=== PATIENT | female | born 1965 | race Caucasian/White ===

== ENCOUNTER 2018-03-26 16:06 | Emergency (ER) | payer OTHER ==
--- NOTE | 2018-03-26 16:32 | EDPHY ---
H & P Stated Complaint: L facial numbness Time Seen by Provider: 03/26/18 16:27 HPI/ROS: CHIEF COMPLAINT: Left-sided facial numbness HISTORY OF PRESENT ILLNESS: 53-year-old previously healthy female presents with left facial numbness. Onset of left cheek numbness at 1500 today. Associated with dry mouth and numbness of the upper lip. No extremity weakness or numbness. No other associated symptoms. REVIEW OF SYSTEMS: complete 10 point ROS negative except at noted in the HPI - Personal History LMP (Females 10-55): Hysterectomy Current Tetanus/Diphtheria Vaccine: Yes Current Tetanus Diphtheria and Acellular Pertussis (TDAP): Yes - Medical/Surgical History Hx Asthma: No Hx Chronic Respiratory Disease: No Hx Diabetes: No Hx Cardiac Disease: No Hx Renal Disease: No Hx Cirrhosis: No Hx Alcoholism: No Hx HIV/AIDS: No Hx Splenectomy or Spleen Trauma: No Other PMH: c-sevtion, hysterectomy - Social History Smoking Status: Never smoked - Physical Exam Exam: General Appearance: Alert, pleasant Eyes: Pupils equal and round, no conjunctival pallor or injection ENT, Mouth: Mucous membranes moist Neck: Normal inspection Respiratory: Lungs are clear to auscultation Cardiovascular: Regular rate and rhythm Gastrointestinal: Abdomen is soft and nontender Neurological: Alert, oriented x3, Decreased sensation to light touch in the V2 distribution of the left face, normal sensation of the forehead and chin, motor 5/5, normal gait Skin: Warm and dry, no rash Extremities: Normal inspection Psychiatric: Mood and affect normal Constitutional: Initial Vital Signs Temperature (C) 36.7 C 03/26/18 16:16 Heart Rate 100 03/26/18 16:16 Respiratory Rate 16 03/26/18 16:16 Blood Pressure 157/89 H 03/26/18 16:16 O2 Sat (%) 96 03/26/18 16:16 O2 Delivery Mode Room Air Allergies/Adverse Reactions: No Known Allergies Allergy (Unverified 03/26/18 16:27) Home Medications: Medication Instructions Recorded [facility] 03/26/18 Medical Decision Making - Diagnostics Imaging Results: Imaging Impressions Brain MRI 03/26/18 16:27 Impression: 1. There is no acute intracranial abnormality identified. 2. Nonspecific subcortical and deep white matter hyperintensities at and above the level of the ventricles with differential considerations as indicated above. Consider repeat MR evaluation (with and without contrast) in 3-6 months to assess for interval interval change, given the lack of any preceding studies. Findings were discussed with IGNACIA SMITH MD at 19:00, on 03/26/2018. ED Course/Re-evaluation: This patient presents with isolated numbness of the left cheek and upper lip. I doubt that this represents a stroke. NIH stroke score is 0. TPA would not be indicated in this patient. A stroke alert was not called. MRI of the brain ordered. MRI of the brain read by Dr. Ta reveals periventricular white matter hyperdensities, nonspecific. Dr. Bridges was consulted and will follow up with the patient in the office. Differential Diagnosis: Altered mental status including but not limited to hypoglycemia, MS, peripheral neuropathy, Johnson's palsy, CVA, electrolyte abnormality. - Data Points Laboratory Results: Laboratory Results 03/26/18 17:36 03/26/18 17:36 03/26/18 03/26/18 17:36 17:36 WBC 7.43 10^3/uL 10^3/uL (3.80-9.50) RBC 4.51 10^6/uL 10^6/uL (4.18-5.33) Hgb 14.0 g/dL g/dL (12.6-16.3) Hct 40.2 % % (38.0-47.0) MCV 89.1 fL fL (81.5-99.8) MCH 31.0 pg pg (27.9-34.1) MCHC 34.8 g/dL g/dL (32.4-36.7) RDW 12.0 % % (11.5-15.2) Plt Count 184 10^3/uL 10^3/uL (150-400) MPV 11.7 fL fL (8.7-11.7) Neut % (Auto) 81.3 % H % (39.3-74.2) Lymph % (Auto) 12.9 % L % (15.0-45.0) Person % (Auto) 5.0 % % (4.5-13.0) Eos % (Auto) 0.4 % L % (0.6-7.6) Baso % (Auto) 0.1 % L % (0.3-1.7) Nucleat RBC Rel Count 0.0 % % (0.0-0.2) Absolute Neuts (auto) 6.04 10^3/uL 10^3/uL (1.70-6.50) Absolute Lymphs (auto) 0.96 10^3/uL L 10^3/uL (1.00-3.00) Absolute Monos (auto) 0.37 10^3/uL 10^3/uL (0.30-0.80) Absolute Eos (auto) 0.03 10^3/uL 10^3/uL (0.03-0.40) Absolute Basos (auto) 0.01 10^3/uL L 10^3/uL (0.02-0.10) Absolute Nucleated RBC 0.00 10^3/uL 10^3/uL (0-0.01) Immature Gran % 0.3 % % (0.0-1.1) Immature Gran # 0.02 10^3/uL 10^3/uL (0.00-0.10) Sodium 144 mEq/L mEq/L (135-145) Potassium 4.5 mEq/L mEq/L (3.5-5.2) Chloride 106 mEq/L mEq/L (97-110) Carbon Dioxide 25 mEq/l mEq/l (22-31) Anion Gap 13 mEq/L mEq/L (8-16) BUN 14 mg/dL mg/dL (7-23) Creatinine 0.8 mg/dL mg/dL (0.6-1.0) Estimated GFR > 60 Glucose 105 mg/dL H mg/dL (70-100) Calcium 9.6 mg/dL mg/dL (8.5-10.4) Total Bilirubin 0.5 mg/dL mg/dL (0.1-1.4) Conjugated Bilirubin 0.4 mg/dL mg/dL (0.0-0.5) Unconjugated Bilirubin 0.1 mg/dL mg/dL (0.0-1.1) AST 22 IU/L IU/L (14-46) ALT 29 IU/L IU/L (9-52) Alkaline Phosphatase 64 IU/L IU/L (38-126) Total Protein 7.3 g/dL g/dL (6.3-8.2) Albumin 4.3 g/dL g/dL (3.5-5.0) TSH 1.950 uIU/mL uIU/mL (0.465-4.680) Departure - Departure Disposition: Home, Routine, Self-Care Clinical Impression: Paresthesia Condition: Good Instructions: Paresthesia (ED) Additional Instructions: Return for worsening symptoms or any concerns. Referrals: Jennifer White MD [Primary Care Provider] - As per Instructions Michael Bridges MD [Medical Doctor] - As per Instructions (Call to make an appointment with Dr. Bridges.)
--- NOTE | 2018-03-26 16:47 | CPEKG ---
Heart Rate: 62 RR Interval: 968 P-R Interval: 136 QRSD Interval: 90 QT Interval: 404 QTC Interval: 411 P [place]: 46 QRS [place]: 4 T Wave [place]: 29 EKG Severity - NORMAL ECG - EKG Impression: SINUS RHYTHM Electronically Signed By: Enid Ferguson 26-Mar-2018 21:25:18
[2018-03-26 17:47] LABS: PLATELET COUNT 184 10^3/uL (150-400)
[2018-03-26 19:30] VITALS: BP 146/89
== END 2018-03-26 19:30 | disposition home or self-care (01) ==
DX: R20.2 Paresthesia of skin (principal)